=== PATIENT | male | born 2000 | race Caucasian/White ===

== ENCOUNTER 2020-05-28 22:44 | Emergency (ER) | payer OTHER ==
[~2020-05-28] VITALS: Ht 180.3 cm; Wt 68.4 kg
[2020-05-28] MEDS ORDERED: SODIUM CHLORIDE 0.9% 1,000ML IVBOLUS ONE (23:30)
[2020-05-28] MEDS ORDERED: MORPHINE SULFATE 4 MG/ML, 1ML IVPush PRN (23:30)
[2020-05-28] MEDS ORDERED: FAMOTIDINE 20 MG/2 ML IVPush ONE (23:30)
[2020-05-28] MEDS ORDERED: ONDANSETRON 2MG/ML, 2ML IVPush ONE (23:30)
[2020-05-28] MEDS ORDERED: SODIUM CHLORIDE FLUSH 10ML SYR IVF ONE (23:30)
[2020-05-28] MEDS ORDERED: PROMETHAZINE 25 MG/ML, 1ML IM ONE (23:30)
--- NOTE | 2020-05-28 23:30 | NUR ---
PT STATES SINCE DID SOME BINGE DRINING LAST NIGHT OUT OF TOWN. ON TRIP BACK THIS MORNING HAS HAD N/V. VOMITTED ABOUT 7 TIMES SINCE THIS MORING AFTER ANY LIQUIDS OR FOOD. HAD DULL ABD PAIN 8/10 TENDER TO TOUCH. HAS HAD CHILLS AND FELT HORRIBLE REASON SEAKED MEDICAL HELP.
[2020-05-28 23:46] LABS: BASOPHILS % (AUTO) 0 % (0-1); EOSINOPHILS % (AUTO) 0 % (1-7); LYMPHOCYTES % (AUTO) 4 % (22-44); MEAN CORPUSCULAR HEMOGLOBIN 33.9 pg (27.5-34.5); MEAN CORPUSCULAR HGB CONC 34.8 g/dL (33.2-36.2); MEAN PLATELET VOLUME 8.9 fL (7.4-10.4); MONOCYTES % (AUTO) 5 % (2-9); NEUTROPHILS % (AUTO) 90 % (42-75); PLATELET COUNT 296 x10^3/uL (130-400); RED BLOOD COUNT 5.15 x10^6/uL (4.38-5.82); RED CELL DISTRIBUTION WIDTH 12.9 % (9.4-14.8)
[2020-05-28 23:47] LABS: MD NO
[2020-05-28] MEDS ORDERED: PROMETHAZINE 25 MG/ML, 1ML ONE (23:49)
[2020-05-28] MEDS ORDERED: FAMOTIDINE 20 MG/2 ML ONE (23:51)
[2020-05-28] MEDS ORDERED: ONDANSETRON 2MG/ML, 2ML ONE (23:52)
[2020-05-28] MEDS ORDERED: MORPHINE SULFATE 4 MG/ML, 1ML ONE (23:54)
[2020-05-28 23:58] LABS: ALANINE AMINOTRANSFERASE 31 U/L (12-78); ALBUMIN 4.6 g/dL (3.4-5.0); ANION GAP 9 mmol/L (5-15); CALCIUM 9.5 mg/dL (8.5-10.1); CHLORIDE 104 mmol/L (98-107); CREATININE 1.07 mg/dL (0.7-1.3)
[2020-05-29] LABS: ALKALINE PHOSPHATASE 128 U/L (45-117); BILIRUBIN,TOTAL 1.3 mg/dL (0.2-1.0)
[2020-05-29 01:03] VITALS: BP 121/52
== END 2020-05-29 01:11 | disposition home or self-care (01) ==
LOC: ED 05-29 01:05
DX: K29.20 Alcoholic gastritis without bleeding (principal); R11.2 Nausea with vomiting, unspecified; R10.13 Epigastric pain; E86.0 Dehydration
CPT/HCPCS: 36415; 80053; 83690; 85025; 96361; 96372; 96374; 96375; 99284; J2270; J2405; J2550; J7030